=== PATIENT | female | born 1960 | race African-American/Black ===

== ENCOUNTER 2019-01-30 19:20 | Emergency (ER) | payer BC ==
[~2019-01-30] VITALS: Ht 165.1 cm; Wt 59.0 kg
[2019-01-30] MEDS ORDERED: SODIUM CHLORIDE 0.9% 1,000 ML IV ONE (19:53)
[2019-01-30] MEDS ORDERED: MAGNESIUM/ALUMINUM HYDROXIDE/SIMETHICONE 30ML UDC PO STA (19:53)
[2019-01-30] MEDS ORDERED: VISCOUS LIDOCAINE 2% 15 ML UDC PO STA (19:53)
[2019-01-30 20:26] LABS: BASOPHILS % 0.3 % (0.0-2.0); EOSINOPHILS % 0.3 % (0.0-5.0); HEMATOCRIT. 39.2 % (36.0-48.0); HEMOGLOBIN. 13.3 g/dL (12.0-16.0); MEAN CORPUSCULAR HEMOGLOBIN 31.7 pg (28.0-32.0); MEAN CORPUSCULAR VOLUME 93.4 fL (81.0-99.0); MEAN PLATELET VOLUME 8.4 fl (7.4-10.4); MONOCYTES % 6.2 % (2.0-8.0); NEUTROPHILS % 81.2 % (40.0-76.0); PLATELET 313 x1000/uL (130-400); RED CELL DISTRIBUTION WIDTH 13.8 % (11.6-14.6)
[2019-01-30 20:31] LABS: CHLORIDE 102 mEq/L (98-107)
[2019-01-30] MEDS ORDERED: POTASSIUM CHLORIDE 20MEQ TABLET SR PO ONE (21:00)
[2019-01-30 22:14] VITALS: BP 132/86
== END 2019-01-30 23:08 | disposition home or self-care (01) ==
LOC: ER 19:20
DX: E86.0 Dehydration (principal); R19.00 Intra-abdominal and pelvic swelling, mass and lump, unspecified site; R55 Syncope and collapse; E87.6 Hypokalemia; F17.210 Nicotine dependence, cigarettes, uncomplicated
CPT/HCPCS: 36415; 74018; 80053; 83690; 84484; 85025; 93005; 96360; 99284; J7030; Z7610